=== PATIENT | female | born 1990 ===

== ENCOUNTER 2021-02-24 15:19 | Emergency (ER) | payer SELFPAY ==
[2021-02-24 15:21] VITALS: BP 144/97; PULSE 97; RESP 18; TEMP 36.8; O2SAT 100; BMI 32.4
== END 2021-02-24 15:50 | disposition left against medical advice (07) ==
LOC: ED 16:18
DX: M54.9 Dorsalgia, unspecified (principal); R41.0 Disorientation, unspecified; Z53.21 Procedure and treatment not carried out due to patient leaving prior to being seen by health care provider; V80.919A Animal-rider injured in unspecified transport accident, initial encounter; Y93.9 Activity, unspecified; Y92.9 Unspecified place or not applicable; Y99.9 Unspecified external cause status